=== PATIENT | female | born 1990 | race American Indian/Alaskan Native ===

== ENCOUNTER 2017-11-17 14:48 | Emergency (ER) | payer MEDICAID ==
[2017-11-17 14:57] VITALS: BP 125/72
[2017-11-17] MEDS ORDERED: cefTRIAXone 250 MG Vial IM ONE (15:48)
[2017-11-17] MEDS ORDERED: Azithromycin 250 MG Tab PO ONE (15:49)
[2017-11-17] MEDS ORDERED: metroNIDAZOLE 250 MG Tab PO ONE (15:50)
[2017-11-17] MEDS ORDERED: Ibuprofen 600 MG Tab PO ONE (16:51)
[2017-11-17] MEDS ORDERED: Ibuprofen 600 MG Tab ONE (16:53)
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
[2017-11-17 17:19] LABS: SODIUM,NA 139 mmol/L (135-145)
== END 2017-11-17 17:25 | disposition home or self-care (01) ==
LOC: DL.ED 14:48
DX: T74.21XA Adult sexual abuse, confirmed, initial encounter (principal); Y07.03 Male partner, perpetrator of maltreatment and neglect
CPT/HCPCS: 36415; 80053; 80305; 81001; 81025; 85025; 87491; 87591; 96372; 99285; A9270; J0696